=== PATIENT | female | born 1930 | race Caucasian/White ===

== ENCOUNTER 2017-07-12 16:16 | Inpatient (IN) | payer MEDICARE, BC ==
[~2017-07-12] VITALS: Ht 162.6 cm; Wt 60.8 kg
--- NOTE | 2017-07-12 16:30 | NUR ---
BBRA 60 FROM BOARD AND CARE C/O MORE ALTERED THAN BASELINE X5 DAYS ADVERTISING CLERK. BS IN FIELD 89. PER DAUGHTER PT WBC ELEVATED RECENT PCP VISIT. A/OX 1-2. BREATHING EVEN AND UNLABORED. NO SOB, NAD, VITALS STABLE. SAFETY AND COMFORT MEASURES IN PLACE. MD AT BEDSIDE FOR EVAL.
--- NOTE | 2017-07-12 16:40 | NUR ---
SUPERINTENDENT CONCRETE MIXING PLANT AT BEDSIDE FOR BLOOD DRAW.
[2017-07-12 16:43] LABS: BASOPHILS # (AUTO) 0.1 /CMM (0.0-0.2); BASOPHILS % (AUTO) 1.1 % (0.0-2.0); EOSINOPHILS % (AUTO) 2.2 % (0.0-6.0); HEMATOCRIT 42 % (33-45); HEMOGLOBIN 13.7 g/dL (11.5-14.8); LYMPHOCYTES # (AUTO) 2.9 /CMM (0.8-4.8); LYMPHOCYTES % (AUTO) 22.9 % (20.0-44.0); MEAN CORPUSCULAR HGB CONC 33 g/dl (31.0-36.0); MEAN CORPUSCULAR VOLUME 91 fL (82-100); MONOCYTES % (AUTO) 7.6 % (2.0-12.0); NEUTROPHILS # (AUTO) 8.3 /CMM (1.8-8.9); NEUTROPHILS % (AUTO) 66.2 % (43.0-81.0); PLATELET COUNT (AUTO) 402 /CMM (150-450); RED BLOOD CELL COUNT(AUTO) 4.59 MIL/uL (4.0-5.2); WHITE BLOOD COUNT (AUTO) 12.6 K/uL (4.3-11.0)
--- NOTE | 2017-07-12 16:46 | NUR ---
PATIENT TAKEN TO CT VIA STRETCHER.
[2017-07-12 16:53] LABS: CARBON DIOXIDE 25 mmol/L (21-32); CHLORIDE 103 mmol/L (98-107); CREATININE 0.6 mg/dL (0.6-1.3); GLUCOSE 86 mg/dL (74-106); POTASSIUM 4.1 mmol/L (3.5-5.1); SODIUM SERUM 139 mmol/L (136-145); UREA NITROGEN, BLOOD 21 mg/dL (7-18)
--- NOTE | 2017-07-12 16:58 | NUR ---
patient returned from ct in stable condition.
[2017-07-12 16:59] LABS: ALANINE AMINOTRANSFERASE 15 U/L (12-78); ALBUMIN 3.2 g/dL (3.4-5.0); ALKALINE PHOSPHATASE 64 U/L (46-116); ASPARTATE AMINOTRANSFERASE 14 U/L (15-37); BILIRUBIN,DIRECT 0.1 mg/dL (0.0-0.2); BILIRUBIN,TOTAL 0.3 mg/dL (0.2-1.0); TOTAL PROTEIN, SERUM 7.3 g/dL (6.4-8.2)
[2017-07-12 17:01] LABS: TROPONIN I < 0.017 ng/mL (0.00-0.056)
[2017-07-12 17:05] LABS: INR 0.92 (0.85-1.15)
--- NOTE | 2017-07-12 17:15 | NUR ---
16 FR newton catheter inserted per sterile protocal. Immediate output 125 ML of urine, color yellow, cloudy
[2017-07-12] MEDS ORDERED: IV NS 0.9% 1,000 ML BAG IV ONE (17:30)
[2017-07-12] MEDS ORDERED: VANCOMYCIN 1 GM in IV D5W 250 ML IV ONE (17:30)
[2017-07-12] MEDS ORDERED: CEFEPIME 1 GM in IV D5W 50 ML IV ONE (17:30)
[2017-07-12 17:37] LABS: APPEARANCE,URINE Clear (CLEAR); BILIRUBIN,URINE Negative (NEGATIVE); BLOOD, URINE Small Ery/uL (NEGATIVE); COLOR,URINE Yellow (YELLOW); KETONES,URINE Negative (NEGATIVE); LEUKOCYTE ESTERASE ,URINE Negative (NEGATIVE); NITRITE, URINE Negative (NEGATIVE); PH,URINE 5.5 (5.0-8.0); PROTEIN,URINE Negative (NEGATIVE); UGLUCOSE Negative (NEGATIVE); UROBILINOGEN,URINE 0.2 EU/dL (0.2)
[2017-07-12 17:39] LABS: BACTERIA,URINE Rare /HPF (None Seen); SQUAMOUS EPITHELIAL CELL,UR Few /HPF (None Seen); WBC,URINE 0-2 /HPF (0-3)
--- NOTE | 2017-07-12 17:43 | NUR ---
DAUGHTER, DPOA: URIEL PAYTON: [phone]
[2017-07-12] MEDS ORDERED: ATOR20TA PO (18:08)
[2017-07-12] MEDS ORDERED: ENAL2.5T PO (18:08)
[2017-07-12] MEDS ORDERED: METF-440 PO (18:08)
[2017-07-12] MEDS ORDERED: OMEP20TA5 PO (18:08)
--- NOTE | 2017-07-12 19:15 | NUR ---
REPORT GIVEN TO NEAL VALVERDE FOR JONATAN.
--- NOTE | 2017-07-12 19:51 | NUR ---
REPORT GIVEN TO IRVING BARCLAY FOR JONATAN.
[2017-07-12 20:08] VITALS: BP 129/82
--- NOTE | 2017-07-12 20:10 | NUR ---
RN OPENING NOTES RECEIVED REPORT FROM CARBONATION EQUIPMENT TENDER NEAL. Pt ARRIVED TO FLOOR VIA GURNEY. WAS ABLE TO TRANSFER Pt TO THE ROOM BED IN 310-2, SAFELY. 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 Pt STATES THAT THE CURRENT [place] PRESIDENT IS PRESIDENT CHAPIN. Pt IS VERBAL, AND ABLE TO FOLLOW DIRECTIONS, AND MAKE HER NEEDS KNOWN. NO S/S OF ACUTE DISTRESS OR SOB NOTED. NO C/O PAIN AT THIS TIME. ON TELE MONITOR. IV ACCESS ON LFA #18G. SAFETY MEASURES IN PLACE. BED LOW, LOCKED, HOB ELEVATED, SIDE RAILS UP, CALL LIGHT AND BEDSIDE TABLE WITHIN REACH. WILL CONTINUE TO MONITOR Pt THROUGHOUT THE NIGHT FOR SAFETY.
[2017-07-12 20:30] VITALS: BP 129/82
--- NOTE | 2017-07-12 22:55 | NUR ---
RN NOTES BG 104. NO INSULIN COVERAGE NEEDED AT THIS TIME.
[2017-07-12] MEDS ORDERED: ALBUTEROL FS 2.5 MG/0.5 ML VIAL.NEB NEB PRN (23:00)
[2017-07-12] MEDS ORDERED: IPRATROPIUM NEB FS 0.5 MG/2.5 ML AMPUL.NEB NEB PRN (23:00)
[2017-07-12] MEDS ORDERED: HYDROCODONE/APAP 5/325MG 1 EACH TABLET PO PRN (23:00)
[2017-07-12] MEDS ORDERED: ONDANSETRON HCL/PF 4 MG/2 ML VIAL IVP PRN (23:00)
[2017-07-12] MEDS ORDERED: ZOLPIDEM TARTRATE 5 MG TABLET PO PRN (23:00)
[2017-07-12] MEDS ORDERED: MAGNESIUM HYDROXIDE 30 ML UDC PO PRN (23:00)
[2017-07-12] MEDS ORDERED: Z GUARD REMEDY 2 OZ OINT TP PRN (23:00)
[2017-07-12] MEDS ORDERED: DEXTROSE 50%-WATER 50 ML DISP.SYRIN IV PRN (23:00)
[2017-07-12] MEDS ORDERED: ACETAMINOPHEN 325 MG TABLET PO PRN (23:00)
[2017-07-12] MEDS ORDERED: LEVOFLOXACIN 750 MG /D5W 150ML 150 ML IV ONE (23:40)
[2017-07-12] MEDS: LEVOFLOXACIN 750 MG /D5W 150ML 750 MG in PREMIX 1 EA IV SCH (23:55)
[2017-07-12] MEDS: IV NS 0.9% 1,000 ML IV PRN (23:55)
[2017-07-13] VITALS: BP 115/58
[2017-07-13 04:00] VITALS: BP 114/72
[2017-07-13] MEDS: BLOOD SUGAR DIAGNOSTIC 1 EACH STRIP IN SCH ×4 (06:21→22:05)
--- NOTE | 2017-07-13 06:23 | NUR ---
RN NOTES ACCUCHECK BG 88. NO INSULIN COVERAGE NEEDED AT THIS TIME.
[2017-07-13 06:41] LABS: BASOPHILS % (AUTO) 0.3 % (0.0-2.0); EOSINOPHILS % (AUTO) 0.5 % (0.0-6.0); HEMATOCRIT 38 % (33-45); HEMOGLOBIN 12.6 g/dL (11.5-14.8); LYMPHOCYTES # (AUTO) 1.2 /CMM (0.8-4.8); LYMPHOCYTES % (AUTO) 9.1 % (20.0-44.0); MEAN CORPUSCULAR HGB CONC 33 g/dl (31.0-36.0); MEAN CORPUSCULAR VOLUME 92 fL (82-100); MONOCYTES # (AUTO) 0.7 /CMM (0.1-1.30); MONOCYTES % (AUTO) 5.2 % (2.0-12.0); NEUTROPHILS # (AUTO) 10.8 /CMM (1.8-8.9); NEUTROPHILS % (AUTO) 84.9 % (43.0-81.0); PLATELET COUNT (AUTO) 346 /CMM (150-450); RDW COEFFICIENT OF VARIATION 14.8 (11.5-15.0); RED BLOOD CELL COUNT(AUTO) 4.16 MIL/uL (4.0-5.2); WHITE BLOOD COUNT (AUTO) 12.7 K/uL (4.3-11.0)
--- NOTE | 2017-07-13 06:45 | NUR ---
RN CLOSING NOTES NO SIGNIFICANT CHANGES IN Pt's CONDITION. Pt REMAINED STABLE THROUGHOUT THE SHIFT. NO S/S OF ACUTE DISTRESS OR SEVERE SOB NOTED DURING THE NIGHT. TELE READING SR 64 WITH BBB's. ALL NEEDS MET AND ATTENDED TO. SAFETY MEASURES IN PLACE. WILL ENDORSE TO DAYSHIFT RN FOR Pt's JONATAN.
[2017-07-13 07:12] LABS: CALCIUM, SERUM 8.3 mg/dL (8.5-10.1); CARBON DIOXIDE 26 mmol/L (21-32); CHLORIDE 106 mmol/L (98-107); CREATININE 0.5 mg/dL (0.6-1.3); GLUCOSE 104 mg/dL (74-106); PHOSPHORUS 3.7 mg/dL (2.5-4.9); SODIUM SERUM 142 mmol/L (136-145); UREA NITROGEN, BLOOD 15 mg/dL (7-18)
--- NOTE | 2017-07-13 07:35 | NUR ---
ECHO VASCULAR TECHNOLOGIST OPENING NOTE PATIENT IS ALERT AND ORIENTED X1-2. ABLE TO COMMUNICATE NEEDS. NO PAIN AT THIS TIME. NO SOB OR DISTRESS NOTED. ON 2L/MIN OF OXYGEN VIA NASAL CANNULA TOLERATING WELL. CALL LIGHT WITHIN REACH AND SAFETY MEASURES IMPLEMENTED. BOYLE CATHETER IN PLACE, DRAINING WELL WITH CLEAR YELLOW URINE. PENDING WOUND CONSULT. IV INTACT AND PATENT ON LEFT FOREARM WITH IV FLUIDS RUNNING AT 60 ML/HR TOLERATING WELL. BLOOD SUGAR TO BE MONITORED THROUGHOUT SHIFT. WILL CONTINUE TO MONITOR Addendum: 07/13/17 at 1236 by NICKI DOTSON RN TELE MONITOR-SR 64.
[2017-07-13 07:55] LABS: MAGNESIUM 1.2 mg/dL (1.8-2.4)
[2017-07-13 08:00] VITALS: BP 114/71
[2017-07-13] MEDS: METFORMIN 500 MG TABLET PO SCH ×2 (08:27→16:06)
[2017-07-13] MEDS: LISINOPRIL (5MG) 5 MG TABLET PO SCH (08:27)
[2017-07-13] MEDS: PANTOPRAZOLE 40 MG TABLET.DR PO SCH (08:27)
--- NOTE | 2017-07-13 08:30 | NUR ---
RN NOTE RECEIVED CALL FROM LAB IN REGARDS TO PATIENT'S MAGNESIUM LEVEL-1.2. WILL NOTIFY MD
[2017-07-13 08:36] LABS: CHOLESTEROL 132 mg/dL (<200); HDL CHOLESTEROL 41 mg/dL (40-60); LDL 71 mg/dL (0-99); TRIGLYCERIDES 157 mg/dL (30-150)
--- NOTE | 2017-07-13 09:50 | NUR ---
RN NOTE NOTIFIED MD FRANNY NP ABOUT PATIENT'S MAGNESIUM LEVEL-1.2 AWAITING ORDERS.
--- NOTE | 2017-07-13 10:00 | NUR ---
RN NOTE PATIENT NOW MEDSURG, OKAY TO TRANSFER WITH ALL PREVIOUS ORDERS
--- NOTE | 2017-07-13 10:07 | NUR ---
WOUND CARE CONSULT: PT PRESENTS WITH SKIN TEAR TO RT LOWER LEG, PRESENT ON ADMISSION.SURGICAL CONSULT RECOMMENDED. PT ALSO NOTED TO BE INCONTINENT OF STOOL. PT HAS BLANCHABLE REDNESS TO SACRAL AREA WITH SCARRING. ALL SKIN PROTECTION MEASURES IN PLACE AND DISCUSSED WITH NURSING STAFF. CURRENT UTE SCORE IS 17. WILL SEE LATRICIA Cheney MD IN AGREEMENT WITH PLAN OF CARE. Addendum: 07/13/17 at 1009 by EDILBERTO BURNHAM WNDNU Amended: Links added.
[2017-07-13] MEDS: BACITRACIN/POLYMYXIN B 15 GM TUBE TP SCH (10:30)
--- NOTE | 2017-07-13 12:02 | NUR ---
MS RN NOTE PATIENT'S BLOOD SUGAR-89 NO INSULIN NEEDED. WILL MONITOR FOR HYPO/HYPERGLYCEMIA.
[2017-07-13] MEDS: Magnesium 1GM/D5W 100ML PREMIX 100 ML IV SCH ×4 (12:13→15:54)
--- NOTE | 2017-07-13 12:16 | NUR ---
MS RN NOTE MAGNESIUM BAG 1 OF 4 RUNNING AT THIS TIME. WILL CONTINUE TO MONITOR
--- NOTE | 2017-07-13 13:45 | NUR ---
MS RN NOTE MAGNESIUM BAG #2 RUNNING AT THIS TIME. WILL CONTINUE TO MONITOR
--- NOTE | 2017-07-13 14:57 | NUR ---
MS RN NOTE MAGNESIUM BAG #3 RUNNING AT THIS TIME. WILL CONTINUE TO MONITOR
[2017-07-13 16:00] VITALS: BP 141/82
[2017-07-13] MEDS: INSULIN REGULAR, HUMAN 100 UNIT/ML 3 ML VIAL SQ PRN ×2 (17:11→22:07)
--- NOTE | 2017-07-13 18:42 | NUR ---
MS RN CLOSING NOTE PATIENT RESTING COMFORTABLY AT THIS TIME. NO PAIN NOTED. NO SOB OR DISTRESS NOTED. CALL LIGHT WITHIN REACH AT ALL TIMES. SAFETY MEASURES IMPLEMENTED. ABLE TO COMMUNICATE NEEDS. ALL DUE MEDICATIONS GIVEN ORDERED. ALL NURSING CARE NEEDS ATTENDED TO NEEDED. MAGNESIUM REPLACED WITH 4 BAGS. LABS IN AM AND PHYSICAL THERAPY. IV INTACT AND PATENT WITH IV FLUIDS RUNNING AT THIS TIME. WILL ENDORSE TO FOUNDER CHAIRMAN AND CHIEF CREATIVE OFFICER NURSE FOR JONATAN
--- NOTE | 2017-07-13 19:22 | NUR ---
MS RN OPENING NOTE RECEIVED PATIENT IN BED, ALERT ORIENTED X2, FORGETFUL. PATIENT ON ROOM AIR, TOLERATING WELL. ABLE TO COMMUNICATE NEEDS. DENIES PAIN AND SOB AT THIS TIME. RESPIRATIONS EVEN AND UNLABORED, IN NO APPARENT DISTRESS OR DISCOMFORT. L FOREARM 18G IV WITH NS RUNNING @60 ML/HR. NO SIGN OF INFILTRATION NOTED. PATIENT WITH BOYLE CATH WITH CLEAR YELLOW URINE OUTPUT DRAINING WELL. ALL NEEDS ATTENDED, SAFETY MEASURES IN PLACE, BED IN LOW LOCKED POSITION, SIDE RAILS UP X2, CALL LIGHT WITHIN EASY REACH. WILL CONTINUE TO MONITOR.
[2017-07-13 20:00] VITALS: BP 129/66
[2017-07-13] MEDS: LEVOFLOXACIN 750 MG /D5W 150ML 750 MG in PREMIX 1 EA IV SCH (22:03)
[2017-07-13] MEDS: ATORVASTATIN 10 MG TABLET PO SCH (22:04)
[2017-07-13] MEDS: IV NS 0.9% 1,000 ML IV PRN (22:16)
--- NOTE | 2017-07-14 06:29 | NUR ---
MS RN CLOSING NOTE PATIENT IN BED, ALERT ORIENTED X1-2, FORGETS WORDS AND EVENTS BUT ORIENTED TO OWN LIMITATIONS. PATIENT ON ROOM AIR, TOLERATING WELL. ABLE TO COMMUNICATE NEEDS. DENIES PAIN AND SOB AT THIS TIME. RESPIRATIONS EVEN AND UNLABORED, IN NO APPARENT DISTRESS OR DISCOMFORT. L FOREARM 18G IV WITH NS RUNNING @60 ML/HR. NO SIGN OF INFILTRATION NOTED. PATIENT WITH BOYLE CATH WITH 1200 ML CLEAR YELLOW URINE OUTPUT, DRAINING WELL. PATIENT HAD 2 BM THROUGHOUT THE NIGHT. SLEPT VERY LITTLE INTERMITTENTLY. ALL NEEDS ATTENDED, KEPT CLEAN AND COMFORTABLE. SAFETY MEASURES IN PLACE, BED IN LOW LOCKED POSITION, SIDE RAILS UP X2, CALL LIGHT WITHIN EASY REACH. WILL ENDORSE TO AM NURSE FOR JONATAN.
[2017-07-14] MEDS: BLOOD SUGAR DIAGNOSTIC 1 EACH STRIP IN SCH ×4 (06:54→22:37)
--- NOTE | 2017-07-14 06:55 | NUR ---
PATIENT'S BLOOD SUGAR 91. NO INSULINE COVERAGE PER SLIDING SCALE.
--- NOTE | 2017-07-14 07:39 | NUR ---
MS RN NOTES PATIENT RECEIVED RESTING INSIDE ROOM. SLEEPING, AROUSABLE THROUGH VERBAL AND TACTILE STIMULI. BREATHING EVEN AND UNLABORED. NO SOB OR ACUTE DISTRESS NOTED AT THIS TIME. PATIENT AFEBRILE, SKIN DRY AND WARM TO TOUCH. NO CHANGES IN LOC NOTED AT THIS TIME. PATIENT DENIES ANY PAIN OR DISCOMFORT. IV SITE AT LFA INTACT AND PATENT, NO BLEEDING OR SWELLING NOTED. WILL CONTINUE TO MONITOR. BED LOCKED AND IN LOW POSITION. BILATERAL UPPER SIDE RAILS UP AND LOCKED. CALL LIGHT WITHIN EASY REACH.
[2017-07-14 08:00] VITALS: BP 125/64
[2017-07-14 08:24] LABS: BASOPHILS % (AUTO) 0.3 % (0.0-2.0); EOSINOPHILS % (AUTO) 1.6 % (0.0-6.0); HEMATOCRIT 36 % (33-45); HEMOGLOBIN 12.2 g/dL (11.5-14.8); LYMPHOCYTES # (AUTO) 1.2 /CMM (0.8-4.8); LYMPHOCYTES % (AUTO) 10.9 % (20.0-44.0); MEAN CORPUSCULAR HGB CONC 34 g/dl (31.0-36.0); MEAN CORPUSCULAR VOLUME 90 fL (82-100); MONOCYTES % (AUTO) 8.9 % (2.0-12.0); NEUTROPHILS # (AUTO) 8.5 /CMM (1.8-8.9); NEUTROPHILS % (AUTO) 78.3 % (43.0-81.0); PLATELET COUNT (AUTO) 328 /CMM (150-450); RDW COEFFICIENT OF VARIATION 13.8 (11.5-15.0); WHITE BLOOD COUNT (AUTO) 10.9 K/uL (4.3-11.0)
[2017-07-14 08:30] LABS: CALCIUM, SERUM 8.6 mg/dL (8.5-10.1); CARBON DIOXIDE 26 mmol/L (21-32); CHLORIDE 107 mmol/L (98-107); CREATININE 0.6 mg/dL (0.6-1.3); GLUCOSE 90 mg/dL (74-106); MAGNESIUM 1.9 mg/dL (1.8-2.4); PHOSPHORUS 3.2 mg/dL (2.5-4.9); POTASSIUM 4.5 mmol/L (3.5-5.1); SODIUM SERUM 141 mmol/L (136-145); UREA NITROGEN, BLOOD 14 mg/dL (7-18)
[2017-07-14] MEDS: BACITRACIN/POLYMYXIN B 15 GM TUBE TP SCH (08:57)
[2017-07-14] MEDS: LISINOPRIL (5MG) 5 MG TABLET PO SCH (08:58)
[2017-07-14] MEDS: PANTOPRAZOLE 40 MG TABLET.DR PO SCH (08:58)
[2017-07-14] MEDS: METFORMIN 500 MG TABLET PO SCH ×2 (08:58→17:33)
[2017-07-14] MEDS: INSULIN REGULAR, HUMAN 100 UNIT/ML 3 ML VIAL SQ PRN ×2 (12:46→22:51)
[2017-07-14 16:00] VITALS: BP 131/60
[2017-07-14] MEDS: IV NS 0.9% 1,000 ML IV PRN (17:33)
--- NOTE | 2017-07-14 18:38 | NUR ---
MS RN NOTES PATIENT RESTING INSIDE ROOM. AWAKE, ALERT AND ORIENTED 1-2. ABLE TO MAKE NEEDS KNOWN AND FOLLOW SIMPLE INSTRUCTIONS. BREATHING EVEN AND UNLABORED. NO SOB OR ACUTE DISTRESS NOTED. NO CHANGES IN LOC NOTED. PATIENT REMAINS AFEBRILE, SKIN DRY AND WARM TO TOUCH. IV SITE ON LFA INTACT AND PATENT, NO BLEEDING OR SWELLING NOTED AT THIS TIME. CONTINUE WITH BOYLE CATHETER USE WITH CLEAR YELLOW URINE OUTPUT NOTED, NO HEMATURIA NOTED, NO FOUL URINE ODOR NOTED. URINE OUTPUT AT THIS SHIFT 1100cc. WILL CONTINUE TO MONITOR. ALL DUE MEDICATIONS GIVEN AND TOLERATED WELL. PROVIDED WITH CALM, SAFE, HAZARD-FREE ENVIRONMENT. PATIENT KEPT, CLEAN, DRY AND WARM TO TOUCH. WILL ENDORSE TO INCOMING SHIFT FOR JONATAN. BED LOCKED AND IN LOW POSITION. BILATERAL UPPER SIDE RAILS UP AND LOCKED. CALL LIGHT WITHIN EASY REACH
--- NOTE | 2017-07-14 19:55 | NUR ---
rn initial notes: received report from jb mackenzie in bed, awake, a/o x2, on ra respiration even and unlabored. denies any pain or discomfort. no facial grimace noted. iv access patent and flushing well, infusing with ns at 60ml/hr. pt received with newton catheter in placed, draining into yellow colored urine. ble offloaded. discussed with pt regarding plan of care. safety precautions for fall initiated, call light in reach, will continue to monitor.
[2017-07-14 20:00] VITALS: BP 100/57
[2017-07-14] MEDS: ATORVASTATIN 10 MG TABLET PO SCH (22:37)
[2017-07-14] MEDS: LEVOFLOXACIN 750 MG /D5W 150ML 750 MG in PREMIX 1 EA IV SCH (22:48)
--- NOTE | 2017-07-14 22:50 | NUR ---
BLOOD SUGAR 119: CHECKED PT'S BLOOD SUGAR AND RESULT IS 119, NO INSULIN COVERAGE GIVEN PER SLIDING SCALE. SNACK PROVIDED TO THE PT, SUCH CRANBERRY JUICE AND PUDDING, ATE SNACK 100%. ASPIRATION PROTOCOL INITIATED.
--- NOTE | 2017-07-14 23:19 | NUR ---
rn notes: pt had one large bm, soft, bed bath provided to the pt at this time.
[2017-07-15] MEDS: BLOOD SUGAR DIAGNOSTIC 1 EACH STRIP IN SCH ×2 (06:10→12:09)
[2017-07-15] MEDS: IV NS 0.9% 1,000 ML IV PRN (06:11)
[2017-07-15] MEDS: INSULIN REGULAR, HUMAN 100 UNIT/ML 3 ML VIAL SQ PRN ×2 (06:11→12:11)
--- NOTE | 2017-07-15 06:12 | NUR ---
BLOOD SUGAR 102: BLOOD SUGAR WAS CHECKED AND RESULT IS 102, NO INSULIN COVERAGE GIVEN PER SLIDING SCALE, WILL MONITOR PT FOR ANY S/S OF HYPOGLYCEMIA
--- NOTE | 2017-07-15 06:41 | NUR ---
rn closing notes: pt remains on ra, no sob noted, respiration even and unlabored. remains confused, a/o x1-2. iv access remains patent and flushing well, infusing with ns at 60ml/hr. ble kept offloaded. newton catheter remains in placed, bag emptied by open shank coverer. vs remains stable, needs attended. for dc planning, awaiting acceptance from [facility]. exit care filled up. safety precautions for fall remains engaged, call light in reach, will endorse to day rn for ajit.
[2017-07-15 08:00] VITALS: BP 117/48
--- NOTE | 2017-07-15 08:00 | NUR ---
m/s gamma facilities operator: initial assessment received pt in bed awake, alert to name with confusion and disorientation to time, place, and situation. reality orientation provided prn. newton cath in place, draining well via gravity. turned and repositioned. kept comfortable. will continue to monitor.
[2017-07-15] MEDS: PANTOPRAZOLE 40 MG TABLET.DR PO SCH (09:27)
[2017-07-15] MEDS: METFORMIN 500 MG TABLET PO SCH (09:27)
[2017-07-15] MEDS: BACITRACIN/POLYMYXIN B 15 GM TUBE TP SCH (09:28)
[2017-07-15] MEDS: LISINOPRIL (5MG) 5 MG TABLET PO SCH (09:30)
--- NOTE | 2017-07-15 10:00 | NUR ---
m/s hyperion administrator: notes am care rendered. turned and repositioned. will continue to monitor.
[2017-07-15] MEDS ORDERED: LEVO750T21 PO (11:00)
--- NOTE | 2017-07-15 11:05 | NUR ---
m/s programs assistant: md visit seen and examined by rony (acnp) with order to d'c to snf. order acknowledge. pt made aware. patrice (daughter) notified and made aware re: d'c to snf, spoke to her over the phone.
--- NOTE | 2017-07-15 13:45 | NUR ---
m/s production drilling machine operator: notes report given to ventura from [facility] for continuity of care. awaiting for ambulance to pick her up.
--- NOTE | 2017-07-15 14:40 | NUR ---
m/s international coordinator: notes f/u made to neo (case management) re: fruit picker machine operator time, stated, "it's for 4 o' clock fruit picker machine operator." pt made aware.
--- NOTE | 2017-07-15 15:40 | NUR ---
m/s venetian blind maker: notes patrice (daughter) here with her , stated, "i will ride with the ambulance and my will follow." pt more alert now. no c/o pain. needs attended. awaiting for ambulance to pick her up. will continue to monitor.
[2017-07-15 16:00] VITALS: BP 134/66
--- NOTE | 2017-07-15 16:20 | NUR ---
m/s skiing teacher: notes ambulance here and report given to one of the crew. h/l removed with tip intact with no bleeding, no redness, and no swelling noted.
--- NOTE | 2017-07-15 16:35 | NUR ---
m/s marine underwriter: discharged discharged to snf via ambulance in stable condition with all belongings and d'c papers accompanied by daughter and 2 crew.
== END 2017-07-15 16:30 | DRG 871 ==
LOC: ER 16:19 → TELE 19:40 → MED 07-13 09:03
PROVIDERS: ADMIT Nurse Practitioner Acute Care; ATTEND Nurse Practitioner Acute Care
DX: A41.9 Sepsis, unspecified organism (principal); J18.9 Pneumonia, unspecified organism; L89.159 Pressure ulcer of sacral region, unspecified stage; G92 Toxic encephalopathy; J80 Acute respiratory distress syndrome; E87.2 Acidosis; E44.1 Mild protein-calorie malnutrition; E11.9 Type 2 diabetes mellitus without complications; I10 Essential (primary) hypertension; F03.90 Unspecified dementia, unspecified severity, without behavioral disturbance, psychotic disturbance, mood disturbance, and anxiety; Z79.84 Long term (current) use of oral hypoglycemic drugs; Z79.899 Other long term (current) drug therapy; L89.899 Pressure ulcer of other site, unspecified stage; L85.3 Xerosis cutis; L60.3 Nail dystrophy; K21.9 Gastro-esophageal reflux disease without esophagitis; S81.811A Laceration without foreign body, right lower leg, initial encounter; X58.XXXA Exposure to other specified factors, initial encounter; Y92.009 Unspecified place in unspecified non-institutional (private) residence as the place of occurrence of the external cause
CPT/HCPCS: 36415; 70450-TC; 71045-TC; 80048-TC; 80061-TC; 80076-TC; 81000-TC; 82962-TC; 83605-TC; 83735-TC; 83880; 84100-TC; 84484-TC; 85025-TC; 85730-TC; 87040-TC; 87081-TC; 87086-TC; A4216; A4606; A6402; J0692; J1815; J1956; J3370; J3475; J7030; J7060; Z7610

== ENCOUNTER 2021-08-25 08:51 | Inpatient (IN) | payer MEDICARE, BC ==
[~2021-08-25] VITALS: Ht 165.1 cm; Wt 58.5 kg
[2021-08-25] VITALS (21 sets, daily range): BP systolic 79–119; BP diastolic 40–78
[~2021-08-25 08:51] MED LIST: ATOR20TA PO; ENAL2.5T17 PO; LEVO750T21 PO; METF-440 PO; OMEP20TA5 PO
--- NOTE | 2021-08-25 08:58 | NUR ---
TANA MANUEL From [facility] "ALOC/Low O2sats. HFNR@15L - HR128. PLACED ON BED, NOT RESPONDING TO VERBAL AND PAINFUL STIMULI, SATURATING AT 98% WITH HFNR 154L, RR-24
[2021-08-25] MEDS ORDERED: CEFEPIME 1 GM in IV D5W 50 ML IV ONE (09:00)
[2021-08-25] MEDS ORDERED: VANCOMYCIN 1 GM in IV D5W 250 ML IV ONE (09:00)
--- NOTE | 2021-08-25 09:01 | NUR ---
IV ESTABLISHED R FA 18G. LABS DRAWN AND SENT.
--- NOTE | 2021-08-25 09:11 | NUR ---
COVID SWAB OBTAINED AND SENT TO LAB
[2021-08-25 09:39] LABS: BASOPHILS # (AUTO) 0.7 K/uL (0.0-0.2); BASOPHILS % (AUTO) 1.5 % (0.0-2.0); HEMATOCRIT 40 % (33-45); HEMOGLOBIN 12.9 g/dL (11.5-14.8); LYMPHOCYTES # (AUTO) 0.6 K/uL (0.8-4.8); LYMPHOCYTES % (AUTO) 1.2 % (20.0-44.0); MEAN CORPUSCULAR HGB CONC 32 g/dl (31.0-36.0); MEAN CORPUSCULAR VOLUME 87 fL (82-100); MONOCYTES # (AUTO) 3.7 K/uL (0.1-1.30); MONOCYTES % (AUTO) 7.3 % (2.0-12.0); NEUTROPHILS # (AUTO) 45.3 K/uL (1.8-8.9); PLATELET COUNT (AUTO) 536 K/uL (150-450); RED BLOOD CELL COUNT(AUTO) 4.62 MIL/uL (4.0-5.2)
[2021-08-25 09:46] LABS: WHITE BLOOD COUNT (AUTO) 50.3 K/uL (4.3-11.0)
[2021-08-25] MEDS ORDERED: BISA10SU11 RC (09:48)
[2021-08-25] MEDS ORDERED: GLIM2TAB31 PO (09:48)
[2021-08-25] MEDS ORDERED: IVER3TAB2 PO (09:48)
[2021-08-25] MEDS ORDERED: CRAN425C6 PO (09:48)
[2021-08-25] MEDS ORDERED: MAGN400O6 PO (09:48)
[2021-08-25] MEDS ORDERED: ACET-868 PO (09:48)
[2021-08-25] MEDS ORDERED: ACET-2605 PO (09:48)
[2021-08-25] MEDS ORDERED: ASPI-1169 PO (09:48)
[2021-08-25] MEDS ORDERED: SITA100T PO (09:48)
[2021-08-25] MEDS ORDERED: OMEG-88 PO (09:48)
[2021-08-25] MEDS ORDERED: CHOL100043 PO (09:48)
--- NOTE | 2021-08-25 09:52 | NUR ---
THE PATIENT IS TAKEN TO CT VIA RNEY
[2021-08-25] MEDS ORDERED: ONDANSETRON HCL/PF - ER 4 MG/2 ML VIAL IV ONE (10:00)
--- NOTE | 2021-08-25 10:05 | NUR ---
TAMAR DYE. FR16 [facility]. URINE SAMPLE SENT TO LAB.
[2021-08-25 10:06] LABS: CARBON DIOXIDE 24 mmol/L (21-32); CHLORIDE 96 mmol/L (98-107); POTASSIUM 4.9 mmol/L (3.5-5.1); SODIUM SERUM 134 mmol/L (136-145)
[2021-08-25] MEDS ORDERED: ONDANSETRON HCL/PF 4 MG/2 ML VIAL ONE (10:18)
[2021-08-25 10:29] LABS: BILIRUBIN,URINE NEGATIVE (NEGATIVE); COLOR,URINE YELLOW (YELLOW); LEUKOCYTE ESTERASE ,URINE NEGATIVE (NEGATIVE); NITRITE, URINE NEGATIVE (NEGATIVE); PH,URINE 5.5 (5.0-8.0); PROTEIN,URINE NEGATIVE (NEGATIVE); UGLUCOSE NEGATIVE (NEGATIVE); UROBILINOGEN,URINE 0.2 EU/dL (0.2)
[2021-08-25] MEDS ORDERED: IV NS 0.9% 2,000 ML IV ONE (10:30)
[2021-08-25] MEDS ORDERED: SODIUM BICARBONATE SYR 50 MEQ/50 ML DISP.SYRIN ONE (10:57)
[2021-08-25] MEDS ORDERED: INSULIN REGULAR, HUMAN 100 UNIT/ML 10 ML VIAL ONE (10:57)
[2021-08-25] MEDS ORDERED: CALCIUM CHLORIDE 1,000 MG/10 ML DISP.SYRIN ONE (11:00)
[2021-08-25] MEDS ORDERED: INSULIN REGULAR, HUMAN 100 UNITS in IV NS 0.9% 100 ML IV PRN ×2 (11:00)
[2021-08-25] MEDS ORDERED: ALBUTEROL FS 2.5 MG/3 ML VIAL.NEB NEB ONE (11:00)
[2021-08-25] MEDS ORDERED: SODIUM BICARBONATE SYR 50 MEQ/50 ML DISP.SYRIN IV ONE (11:00)
[2021-08-25] MEDS ORDERED: IV NS 0.9% 1,000 ML IV PRN ×2 (11:00→11:30)
[2021-08-25] MEDS ORDERED: FUROSEMIDE 40 MG/4 ML VIAL IV ONE (11:00)
[2021-08-25] MEDS ORDERED: CALCIUM CHLORIDE 1,000 MG/10 ML DISP.SYRIN IV ONE (11:00)
[2021-08-25] MEDS ORDERED: INSULIN REGULAR, HUMAN 100 UNIT/ML 10 ML VIAL SQ ONE (11:00)
[2021-08-25] MEDS ORDERED: SODIUM BICARBONATE SYR 100 MEQ in IV D5W 1,000 ML IV ONE (11:00)
[2021-08-25] MEDS ORDERED: ALBUTEROL FS 2.5 MG/3 ML VIAL.NEB ONE (11:09)
[2021-08-25 11:11] LABS: THYROID STIMULATING HORMONE 2.376 uIU/mL (0.358-3.74)
[2021-08-25 11:16] LABS: ALANINE AMINOTRANSFERASE 18 U/L (12-78); ALBUMIN 2.6 g/dL (3.4-5.0); ALCOHOL, BLOOD < 3 mg/dL (0-0); ALKALINE PHOSPHATASE 91 U/L (46-116); ASPARTATE AMINOTRANSFERASE 15 U/L (15-37); BILIRUBIN,DIRECT 0.2 mg/dL (0.0-0.2); BILIRUBIN,TOTAL 0.8 mg/dL (0.2-1.0); CREATININE 1.6 mg/dL (0.6-1.3); TOTAL PROTEIN, SERUM 7.1 g/dL (6.4-8.2); UREA NITROGEN, BLOOD 41 mg/dL (7-18)
[2021-08-25] MEDS ORDERED: FUROSEMIDE 40 MG/4 ML VIAL ONE (11:19)
[2021-08-25] MEDS ORDERED: ACETAMINOPHEN ES 500 MG TABLET PO PRN (11:30)
[2021-08-25] MEDS ORDERED: BISACODYL SUPP (10 MG) 10 MG/SUPP.RECT SUPP.RECT RC PRN (11:30)
[2021-08-25] MEDS ORDERED: ACETAMINOPHEN 650 MG/SUPP.RECT RC PRN (11:30)
[2021-08-25] MEDS ORDERED: DEXTROSE 50%-WATER 50 ML DISP.SYRIN IV PRN ×2 (11:30→23:00)
[2021-08-25] MEDS ORDERED: INSULIN REGULAR, HUMAN 100 UNIT in IV NS 0.9% 99 ML IV PRN ×4 (11:30→16:00)
[2021-08-25] MEDS ORDERED: ACETAMINOPHEN 325 MG TABLET PO PRN (11:30)
[2021-08-25 11:49] LABS: CARBON DIOXIDE 26 mmol/L (21-32); CHLORIDE 98 mmol/L (98-107); CREATININE 1.6 mg/dL (0.6-1.3); MAGNESIUM 1.6 mg/dL (1.8-2.4); PHOSPHORUS 5.1 mg/dL (2.5-4.9); POTASSIUM 5.2 mmol/L (3.5-5.1); SODIUM SERUM 130 mmol/L (136-145); UREA NITROGEN, BLOOD 43 mg/dL (7-18)
[2021-08-25] MEDS: BLOOD SUGAR DIAGNOSTIC 1 EACH STRIP IN SCH ×12 (12:12→23:42)
[2021-08-25 12:14] LABS: GLUCOSE 474 mg/dL (74-106)
[2021-08-25 12:16] LABS: CALCIUM, SERUM 13.3 mg/dL (8.5-10.1); GLUCOSE 558 mg/dL (74-106)
[2021-08-25 12:31] LABS: BACTERIA,URINE None seen /HPF (None Seen); RBC,URINE NONE SEEN /HPF (0-2); SQUAMOUS EPITHELIAL CELL,UR None Seen /HPF (None Seen); WBC,URINE NONE SEEN /HPF (0-3)
--- NOTE | 2021-08-25 12:38 | NUR ---
DRESSER TENDER [facility] WILL BE DONE AT 1800. DONT GIVE MORPHINE ORDERED.
--- NOTE | 2021-08-25 12:40 | NUR ---
CALLED NURSING SUP REGARDING PT BED
[2021-08-25 12:48] LABS: BAND % (MANUAL) 5 % (0.0-5.0); LYMPHOCYTES % (MANUAL) 1 % (16-48); METAMYELOCYTES % 1 % (0-0); MONOCYTES % (MANUAL) 7 % (0-11.0)
[2021-08-25 12:49] LABS: NEUTROPHILS % (MANUAL) 86 (42-76)
[2021-08-25] MEDS: PIPERACILLIN /TAZOBACTAM 3.375 G in IV D5W 50 ML IV SCH ×3 (13:40→23:40)
[2021-08-25 14:11] LABS: CALCIUM, SERUM 8.9 mg/dL (8.5-10.1); CARBON DIOXIDE 20 mmol/L (21-32); CHLORIDE 102 mmol/L (98-107); CREATININE 1.4 mg/dL (0.6-1.3); POTASSIUM 4.8 mmol/L (3.5-5.1); SODIUM SERUM 139 mmol/L (136-145); UREA NITROGEN, BLOOD 38 mg/dL (7-18)
[2021-08-25 14:13] LABS: GLUCOSE 443 mg/dL (74-106)
[2021-08-25 14:25] LABS: SERUM AMMONIA 25 umol/L (11-32)
--- NOTE | 2021-08-25 14:27 | NUR ---
JOSÉ LUIS GUILLORY ORDERS TO DISCONTINUE 0.9 NS 250MLS. Q4HRS.
[2021-08-25 15:20] LABS: CALCIUM, SERUM 8.7 mg/dL (8.5-10.1); CREATININE 1.3 mg/dL (0.6-1.3); MAGNESIUM 1.5 mg/dL (1.8-2.4); PHOSPHORUS 3.6 mg/dL (2.5-4.9); POTASSIUM 4.5 mmol/L (3.5-5.1)
--- NOTE | 2021-08-25 15:34 | NUR ---
report given to nurse Fields
--- NOTE | 2021-08-25 15:34 | NUR ---
room 255
[2021-08-25 15:44] LABS: LIPASE 13 U/L (73-393)
--- NOTE | 2021-08-25 16:40 | NUR ---
PATIENT TRANSFER TO [id number] INSTABLE CONDITION AND PER ACLS POLYCY
--- NOTE | 2021-08-25 16:54 | NUR ---
CLINICAL MANAGER NOTE PATIENT RECEIVED IN ROOM 255. INSULIN DRIP RUNNING AT 2.02 ML/HR. BOYLE CATH IN PLACE. RIGHT FA 18G, LEFT FA ANF LEFT WRIST 20G IN PLACE RUNNING NS AT 100CC/HR AND SODIUM BICARB AT 100CC/HR.
[2021-08-25] MEDS: Magnesium 1GM/D5W 100ML PREMIX 100 ML IV SCH ×2 (17:33→18:46)
--- NOTE | 2021-08-25 18:39 | NUR ---
RN CLOSING NOTE PATIENT REMAINS IN BED, OBTUNDED, OPEN EYES ONLY TO PAINFUL STIMULI. PT ON 8L O2 VIA SIMPLE MASK SAT 100% ON BEDSIDE MONITOR. BOYLE CATH IN PLACE PATENT AND DRAINING. RIGHT FA 18G, LEFT FA 20G AND LEFT WRIST 20G IN PLACE RUNNING SODIUM BICARB D5W AT 100CC/HR, NS AT 100CC/HR AND INSULIN DRIP AT 7ML/HR PER PROTOCOL. BED LOCKED AND IN LOWEST POSITION, CALL LIGHT WITHIN REACH, 3 SIDE RAILS UP. WILL ENDORSE TO INSURANCE JOB TITLES RN FOR JNOATAN.
--- NOTE | 2021-08-25 20:20 | NUR ---
ICU/WOOD BLOCK ARTIST NERA ID INDEPENDENT CONSULTANT FOR DRYER CAME TO SEE PT, GAVE ORDER FOR ELIMITE CREAM AND REMOVE IN 12 HOURS. ORDERS RECEIVED AND CARRIED OUT.
[2021-08-25] MEDS ORDERED: PERMETHRIN 5% CRM 60 GM TUBE TP PRN (20:30)
[2021-08-25] MEDS: PHENYLEPHRINE 100 MG in IV NS 0.9% 240 ML IV PRN (20:35)
--- NOTE | 2021-08-25 20:45 | NUR ---
ICU/LATHER APPRENTICE BLOOD PRESSURE IS LOW THROUGH A FEW CYCLES, CHARGE NURSE MADE AWARE. CALLED HEAD KNITTING MACHINE FIXER DORA GAVE ORDER TO START NA, KEEP MAP ABOVE 65. WILL CONTINUE TO MONITOR THIS PT.
[2021-08-25] MEDS ORDERED: VANCOMYCIN 0.75 GM in IV D5W 250 ML IV SCH (21:00)
[2021-08-25 21:11] LABS: CALCIUM, SERUM 8.2 mg/dL (8.5-10.1); CREATININE 1.3 mg/dL (0.6-1.3); POTASSIUM 3.7 mmol/L (3.5-5.1)
[2021-08-25] MEDS: ATORVASTATIN 10 MG TABLET PO SCH (21:29)
--- NOTE | 2021-08-25 21:29 | NUR ---
ICU/SIGNS CLEANER UNABLE TO GIVE PT'S 2200 DOSE OF LIPITOR DUE TO PT IS LETHARGIC, AND POSSIBILITY OF PT ASPIRATION IS POSSIBLE. WILL CONTINUE TO MONITOR THIS PT.
--- NOTE | 2021-08-25 21:43 | NUR ---
ICU/REPRODUCTIVE ENDOCRINOLOGIST ANION GAP CLOSED FROM THE CHEMISTRY DRAWN EARLIER. GOING TO WAIT UNTIL 2200 BLOOD SUGAR, BEFORE CALLING THE PIANO BENCH ASSEMBLER MD. Dunn
--- NOTE | 2021-08-25 22:57 | NUR ---
ICU/CELLOPHANE WORKER SANDING SUPERVISOR MD NOTIFED ABOUT THE ANION GAP 9, SAID TO DISCONTINUE INSULIN DRIP ALONG WITH EVERY ON HOUR ACCU CHECKS. PLACE PT ON AGGRESSIVE SLIDING SCALE AND DO ACCU CHECKS EVERY 4 HOURS. ORDERS RECIEVED AND CARRIED OUT.
[2021-08-25] MEDS ORDERED: INSULIN REGULAR, HUMAN 100 UNIT/ML 3 ML VIAL ONE (23:11)
--- NOTE | 2021-08-25 23:24 | NUR ---
RT NOTE NASOTRACHEAL SUCTION DONE. MODERATE THICK WHITE YELLOW SECRETIONS NOTED. PT REMAINS ON SIMPLE MASK @ 8LPM. NO RESPIRATORY DISTRESS NOTED. NURSE RODERICK @ BEDSIDE.
--- NOTE | 2021-08-25 23:24 | NUR ---
ICU/CERTIFIED LACTATION COUNSELOR PT WAS DEEP SUCTIONED BY RT MARIANO, THICK YELLOW SECRETIONS FOUND. ODER WAS OBTAINED TO DEEP SUCTION THIS PT.
[2021-08-25] MEDS: INSULIN REGULAR, HUMAN 100 UNIT/ML 3 ML VIAL SQ PRN (23:46)
[2021-08-26] VITALS (91 sets, daily range): BP systolic 79–138; BP diastolic 23–85
--- NOTE | 2021-08-26 00:32 | NUR ---
ICU/FINISHING OPERATOR CHANGED OVER IVF FROM NS TO D5 1/2 NS PLUS 20KCL@100ML/HR SINCE PT IS ON AGGRESSIVE SLIDING SCALE AND IS NOT AWAKE TO EAT.
[2021-08-26] MEDS ORDERED: IV PREMIX D5 1/2NS + KCL 1,000 ML IV ONE (00:43)
[2021-08-26] MEDS ORDERED: INSULIN GLARGINE, 100 UNIT/ML CARTRIDGE SQ ONE ×2 (00:54→03:00)
[2021-08-26] MEDS: IV PREMIX D5 1/2NS + KCL 1,000 ML IV PRN ×3 (00:58→21:38)
[2021-08-26] MEDS: BLOOD SUGAR DIAGNOSTIC 1 EACH STRIP IN SCH ×6 (01:07→21:34)
--- NOTE | 2021-08-26 01:46 | NUR ---
ICU/HERPETOLOGY TEACHER LANTUS WAS ORDERED X1, 20 UNITS PLUS CHANGE OF IVF NS TO NOW D5 1/2 NS WITH 20KCL WITH ORDER WAS RECEIVED AND CARRIED OUT. WITH THE BLOOD SUGAR AT 170.
[2021-08-26 04:08] LABS: BASOPHILS # (AUTO) 0.1 K/uL (0.0-0.2); BASOPHILS % (AUTO) 0.2 % (0.0-2.0); HEMATOCRIT 33 % (33-45); LYMPHOCYTES # (AUTO) 1.1 K/uL (0.8-4.8); LYMPHOCYTES % (AUTO) 2.4 % (20.0-44.0); MEAN CORPUSCULAR HGB CONC 33 g/dl (31.0-36.0); MEAN CORPUSCULAR VOLUME 86 fL (82-100); MONOCYTES # (AUTO) 3.5 K/uL (0.1-1.30); MONOCYTES % (AUTO) 7.9 % (2.0-12.0); NEUTROPHILS % (AUTO) 89.5 % (43.0-81.0); PLATELET COUNT (AUTO) 422 K/uL (150-450); RED BLOOD CELL COUNT(AUTO) 3.89 MIL/uL (4.0-5.2)
[2021-08-26 04:13] LABS: WHITE BLOOD COUNT (AUTO) 44.7 K/uL (4.3-11.0)
[2021-08-26 04:37] LABS: BAND % (MANUAL) 2 % (0.0-5.0)
[2021-08-26 04:38] LABS: LYMPHOCYTES % (MANUAL) 8 % (16-48)
[2021-08-26 04:39] LABS: MONOCYTES % (MANUAL) 3 % (0-11.0); NEUTROPHILS % (MANUAL) 87 (42-76)
[2021-08-26 04:59] LABS: CALCIUM, SERUM 8.9 mg/dL (8.5-10.1); CARBON DIOXIDE 28 mmol/L (21-32); CHLORIDE 97 mmol/L (98-107); CREATININE 1.2 mg/dL (0.6-1.3); GLUCOSE 221 mg/dL (74-106); MAGNESIUM 1.9 mg/dL (1.8-2.4); PHOSPHORUS 3.1 mg/dL (2.5-4.9); POTASSIUM 4.3 mmol/L (3.5-5.1); SODIUM SERUM 135 mmol/L (136-145); UREA NITROGEN, BLOOD 36 mg/dL (7-18)
[2021-08-26] MEDS: INSULIN REGULAR, HUMAN 100 UNIT/ML 3 ML VIAL SQ PRN ×3 (05:07→21:37)
[2021-08-26] MEDS: PIPERACILLIN /TAZOBACTAM 3.375 G in IV D5W 50 ML IV SCH ×4 (05:53→23:31)
--- NOTE | 2021-08-26 08:00 | NUR ---
RN NOTES RECEIVED PATIENT DNR/DNI ON SIMPLE FACE MASK 8L ON BEDSIDE MONITOR SHOWS 100%, ASPIRATION PRECAUTION, EYES IS CLOSE MOST OF THE TIME, NO ACUTE RESPIRATORY DISTRESS, ACCORDING WATERWORKS OPERATOR Dr ARIAS CHANGE FOR NC, BS-175 MG/DL COVERAGE GIVEN, HOLD PO MEDICATION BECAUSE OF NPO, ASPIRATION PRECAUTION. INFUSING NEOSYNEPHRINE 0.6 MCG/KG/MIN, AND D51/2 NS +KCL @20MEQ @100ML/HR ON LEFT ML INTACT. PATIENT TOTAL CARE, ASSIST TURN AND REPOSTION Q 2 HR. WILL FOLLOW UP.
[2021-08-26] MEDS: ASPIRIN 81 MG TAB.CHEW PO SCH ×2 (08:16→08:43)
[2021-08-26] MEDS: CHOLECALCIFEROL 1,000 UNIT TABLET (VIT D3) PO SCH ×2 (08:16→08:44)
[2021-08-26] MEDS: PANTOPRAZOLE 40 MG VIAL IV SCH (08:17)
--- NOTE | 2021-08-26 09:31 | NUR ---
WOUND CARE CONSULT: PT SLEEPING AT THIS TIME. REVIEWED CHART, NURSING DOCUMENTATION AND PHOTOS WHICH INDICATE SACRAL AND RT HEEL DEEP TISSUE INJURIES, PRESENT ON ADMISSION. DR MORALES AND DR DARBY NOTIFIED OF SURGICAL AND DPM CONSULTS. RECOMMENDATIONS MADE FOR SKIN PROTECTION. DISCUSSED WITH NURSING STAFF. MD IN AGREEMENT WITH PLAN OF CARE.
[2021-08-26] MEDS: VANCOMYCIN 0.75 GM in IV D5W 250 ML IV SCH (11:22)
[2021-08-26] MEDS: IV NS 0.9% 250 ML IV PRN (12:00)
--- NOTE | 2021-08-26 12:17 | NUR ---
rn notes [id number], due medication administered. Get call from daughter asking update from her mother, per daughter she will not planing do visit to the mother because of Covid. Seen hospitalist Dr Elieser reeves order is follow up. patient on norsynephrine 0.6mcg/kg/min. will follow up. assist turn and reposition q 2 hr.
[2021-08-26 14:09] LABS: CHLORIDE 97 mmol/L (98-107); POTASSIUM 4.2 mmol/L (3.5-5.1); SODIUM SERUM 133 mmol/L (136-145)
[2021-08-26 14:37] LABS: CALCIUM, SERUM 8.3 mg/dL (8.5-10.1); CARBON DIOXIDE 32 mmol/L (21-32); GLUCOSE 155 mg/dL (74-106); UREA NITROGEN, BLOOD 30 mg/dL (7-18)
[2021-08-26] MEDS ORDERED: PERMETHRIN 5% CRM 60 GM TUBE TP ONE (16:30)
--- NOTE | 2021-08-26 18:28 | NUR ---
RN NOTES PATIENT PM CRE DONE, SUCTION, MOUTH CARE, DUE MEDICATION ADMINISTERED. TITRATED UP NEOSYNEPHRINE 0.7 MCG/KG/MIN BP 82/46, P-94. PATIENT ON O2-3LNC, NO ACUTE RESPIRATORY DISTRESS. ASSIST TURN AND REPOSTION Q 2 HR, BS-131MG/DL NO COVERAGE GIVE, PATIENT NPO. BOYLE DRAINING VIA GRAVITY. CALL LIGHT WITHIN TO REACH. ENDORSED ONCOMING NURSE JONATAN.
--- NOTE | 2021-08-26 20:30 | NUR ---
ICU/DOCK HAND BLOOD PRESSURE WAS LOW INTO THE 80'S THROUGH A FEW CYCLES MADE CHARGE NURSE AWARE OF THIS AND INCREASED THE NA TO 0.9 FROM 0.8. WILL CONTINUE TO MONITOR THIS PT AND HER BLOOD PRESSURE.
[2021-08-26] MEDS: ATORVASTATIN 10 MG TABLET PO SCH (21:37)
--- NOTE | 2021-08-26 22:30 | NUR ---
ICU/PLATEN GRINDER PT WAS TURNED AND REPOSITIONED FOR COMFORT AND CARE, SATURATION CAME DOWN TO THE 80'S SO INCREASED THE N/C TO 4 LITERS FROM 3 LITERS. WILL CONTINUE TO MONITOR THIS PT.
[2021-08-26] MEDS: PHENYLEPHRINE 100 MG in IV NS 0.9% 240 ML IV PRN (23:33)
[2021-08-27] VITALS (96 sets, daily range): BP systolic 82–121; BP diastolic 32–74
--- NOTE | 2021-08-27 00:20 | NUR ---
ICU/MANAGER PROGRESSIVE CARE PT WAS DEEP SUCTIONED BY RT RAMONA, THICK YELLOW/BLOODY SECRETIONS FOUND. WILL CONTINUE TO MONITOR THIS PT.
--- NOTE | 2021-08-27 00:36 | NUR ---
ICU/BUNCH MAKER PT'S CT SHOWED THAT SHE IS CONSTIPATED, SUPPOSITORY WAS GIVEN FOR BM. WILL CONTINUE TO MONITOR THIS PT .
[2021-08-27] MEDS: BLOOD SUGAR DIAGNOSTIC 1 EACH STRIP IN SCH ×7 (01:24→21:41)
[2021-08-27] MEDS: INSULIN REGULAR, HUMAN 100 UNIT/ML 3 ML VIAL SQ PRN ×4 (01:25→17:16)
[2021-08-27 04:49] LABS: BASOPHILS % (AUTO) 0.1 % (0.0-2.0); EOSINOPHILS % (AUTO) 0.1 % (0.0-6.0); HEMATOCRIT 32 % (33-45); HEMOGLOBIN 10.6 g/dL (11.5-14.8); LYMPHOCYTES # (AUTO) 0.8 K/uL (0.8-4.8); LYMPHOCYTES % (AUTO) 2.3 % (20.0-44.0); MEAN CORPUSCULAR HGB CONC 33 g/dl (31.0-36.0); MEAN CORPUSCULAR VOLUME 85 fL (82-100); MONOCYTES % (AUTO) 6.2 % (2.0-12.0); NEUTROPHILS # (AUTO) 30.1 K/uL (1.8-8.9); NEUTROPHILS % (AUTO) 91.3 % (43.0-81.0); PLATELET COUNT (AUTO) 339 K/uL (150-450); RED BLOOD CELL COUNT(AUTO) 3.76 MIL/uL (4.0-5.2)
[2021-08-27 05:04] LABS: CALCIUM, SERUM 8.1 mg/dL (8.5-10.1); CARBON DIOXIDE 30 mmol/L (21-32); CHLORIDE 96 mmol/L (98-107); CREATININE 0.9 mg/dL (0.6-1.3); GLUCOSE 152 mg/dL (74-106); MAGNESIUM 1.5 mg/dL (1.8-2.4); PHOSPHORUS 2.5 mg/dL (2.5-4.9); POTASSIUM 3.1 mmol/L (3.5-5.1); SODIUM SERUM 133 mmol/L (136-145); UREA NITROGEN, BLOOD 22 mg/dL (7-18)
[2021-08-27 05:09] LABS: WHITE BLOOD COUNT (AUTO) 32.9 K/uL (4.3-11.0)
[2021-08-27 05:21] LABS: ALANINE AMINOTRANSFERASE 20 U/L (12-78); ALBUMIN 1.9 g/dL (3.4-5.0); ALKALINE PHOSPHATASE 90 U/L (46-116); ASPARTATE AMINOTRANSFERASE 16 U/L (15-37); BILIRUBIN,TOTAL 0.5 mg/dL (0.2-1.0); TOTAL PROTEIN, SERUM 6.2 g/dL (6.4-8.2)
[2021-08-27] MEDS: PIPERACILLIN /TAZOBACTAM 3.375 G in IV D5W 50 ML IV SCH ×3 (05:21→17:09)
[2021-08-27] MEDS: IV PREMIX D5 1/2NS + KCL 1,000 ML IV PRN ×2 (05:22→16:00)
--- NOTE | 2021-08-27 08:00 | NUR ---
rn notes received patient DNR/DNI on 3lnc, no acute respiratory distress. Patient total care, NPO. infusing norsynephrine 0.5 mcg/kg/min, and D5 1/2 NS + kcl 20meq @100 ml/hr on left midline intact. Assist turn and reposition q 2 hr. Lab values reviewed, MD aware of it , waiting for new orders. Magaña draining via gravity. will follow up.
[2021-08-27] MEDS: PANTOPRAZOLE 40 MG VIAL IV SCH (08:14)
[2021-08-27] MEDS: ASPIRIN 81 MG TAB.CHEW PO SCH (08:14)
[2021-08-27] MEDS: CHOLECALCIFEROL 1,000 UNIT TABLET (VIT D3) PO SCH (08:14)
--- NOTE | 2021-08-27 08:59 | NUR ---
rn notes get TO new order of Mg 200, and Kcl 40meq per Dr Joshua order placement. order taken and carried out.
[2021-08-27] MEDS: Magnesium 1GM/D5W 100ML PREMIX 100 ML IV SCH ×2 (09:10→10:02)
[2021-08-27] MEDS: POTASSIUM CL. PREMIX PERIPHER. 50 ML IV SCH ×4 (10:03→14:55)
[2021-08-27 10:48] LABS: BAND % (MANUAL) 3 % (0.0-5.0); LYMPHOCYTES % (MANUAL) 3 % (16-48); MONOCYTES % (MANUAL) 5 % (0-11.0); NEUTROPHILS % (MANUAL) 89 (42-76)
--- NOTE | 2021-08-27 12:00 | NUR ---
rn notes patient awake, gives feedback for questions, seen hospitalist Marina Reddy get TO order swallow evaluation. order taken and carried out.
[2021-08-27] MEDS: VANCOMYCIN 0.75 GM in IV D5W 250 ML IV SCH (12:13)
--- NOTE | 2021-08-27 12:13 | NUR ---
rn notes patient passed swallow evaluation, get TO order CCHO 60gm pure diet.
[2021-08-27] MEDS: IV NS 0.9% 250 ML IV PRN (16:00)
[2021-08-27] MEDS ORDERED: DEXTROSE 50%-WATER 50 ML DISP.SYRIN IV PRN (17:30)
--- NOTE | 2021-08-27 18:22 | NUR ---
rn notes Patient tolerated dinner 40% with total assist, keep hob elevated for aspiration precaution,due medication administered, no acute respiratory distress. infusing norsynephrine 0.4mcg/kg/min, D5Ns+kcl 20mcg/kg/hr intact on AKILAH midline intact. bs-191mg/dl coverage given .assist turn and reposition. Magaña output was 1000ml, endorsed oncoming nurse follow ajit.
--- NOTE | 2021-08-27 19:30 | NUR ---
RN OPENING NOTES RECEIVED CARE OF PATIENT FROM AM NURSE. PATIENT IN BED, LETHARGIC, ALERT TO NAME ONLY, NON-VERBAL. REPOSITIONED PATIENT FOR COMFORT. PATIENT ON O2 THERAPY VIA NC AT 4 L/MIN, NO SOB NOTED, NON-PRODUCTIVE COUGHING NOTED, WILL DEEP SUCTION PATIENT NEEDED, O2 IS CURRENTLY 98%. PATIENT'S TELE MONITOR READING NSR WITH HR OF 76. BOYLE CATH IN PLACE DRAINING YELLOW URINE. NA DRIP INFUSING AT O.4 MCG/KG/MIN, D5NS+KCL 20Meq AT 100 ML/HR VIA AKILAH MIDLINE. SAFETY MEASURES IMPLEMENTED PER HOSPITAL PROTOCOLS. WILL ANTICIPATE AND ATTEND TO PATIENT'S NEEDS AND CONTINUE TO MONITOR PATIENT'S STATUS.
[2021-08-27] MEDS: ATORVASTATIN 10 MG TABLET PO SCH (21:37)
[2021-08-27] MEDS: *INSULIN REGULAR(HUMULIN R)HUM 100 UNIT/ML VIAL SQ PRN (21:40)
--- NOTE | 2021-08-27 22:10 | NUR ---
RN NOTES PATIENT TOLERATES MEDICATION PO INTAKE WITH NOURISHMENT. WILL CONTINUE TO OFFER PATIENT PO NOURISHMENT THROUGHOUT SHIFT.
[2021-08-28] VITALS (81 sets, daily range): BP systolic 82–126; BP diastolic 31–93
[2021-08-28] MEDS: PIPERACILLIN /TAZOBACTAM 3.375 G in IV D5W 50 ML IV SCH ×4 (00:22→17:31)
[2021-08-28] MEDS: IV PREMIX D5 1/2NS + KCL 1,000 ML IV PRN ×3 (01:49→21:46)
[2021-08-28 04:13] LABS: BASOPHILS % (AUTO) 0.1 % (0.0-2.0); EOSINOPHILS % (AUTO) 0.2 % (0.0-6.0); HEMATOCRIT 27 % (33-45); HEMOGLOBIN 8.9 g/dL (11.5-14.8); LYMPHOCYTES % (AUTO) 4.1 % (20.0-44.0); MEAN CORPUSCULAR HGB CONC 33 g/dl (31.0-36.0); MEAN CORPUSCULAR VOLUME 85 fL (82-100); MONOCYTES # (AUTO) 1.7 K/uL (0.1-1.30); MONOCYTES % (AUTO) 6.9 % (2.0-12.0); NEUTROPHILS # (AUTO) 21.5 K/uL (1.8-8.9); NEUTROPHILS % (AUTO) 88.7 % (43.0-81.0); PLATELET COUNT (AUTO) 292 K/uL (150-450); RED BLOOD CELL COUNT(AUTO) 3.15 MIL/uL (4.0-5.2); WHITE BLOOD COUNT (AUTO) 24.3 K/uL (4.3-11.0)
--- NOTE | 2021-08-28 06:40 | NUR ---
RN CLOSING NOTES WILL ENDORSE CARE OF PATIENT TO AM NURSE. PATIENT ORIENTED TO SELF, NON-VERBAL, ABLE TO MAKE NEEDS KNOWN WITH FACIAL EXPRESSIONS. PATIENT IN NO PAIN OR DISCOMFORT THROUGHOUT SHIFT. PATIENT ON O2 THERAPY VIA NC AT 4 L/MIN, NO SOB NOTED, O2 SAT 98%. PATIENT'S TELE MONITOR SHOWING SR WITH HR IN THE 70'S. NO SIGNIFICANT FINDINGS UPON ALL NURSING ASSESSMENTS. ALL SAFETY MEASURES IMPLEMENTED PER HOSPITAL PROTOCOLS. WILL ENDORSE CARE OF PATIENT TO AM NURSE FOR CONTINUITY OF CARE.
--- NOTE | 2021-08-28 08:00 | NUR ---
RN NOTES PATIENT ON O2-4LNC -O2 SAT 98%. HR- ON TELE MONITOR SHOWING SHOWS SR- 70'S. NO SIGNIFICANT FINDINGS UPON ALL NURSING ASSESSMENTS. SUCTION MOUTH CARE DONE, ALL SAFETY MEASURES IMPLEMENTED PER HOSPITAL PROTOCOLS. BS-189MG.DL COVERAGE GIVEN, DUE MEDICATION ADMINISTERED. ASSIST PATIENT TO EAT PATIENT TOLERATED 50%. INFUSING LEVOPHED 0.3 MCG/KG/MIN, D5 1/2 NS WITH 20MEQU KCL @100 ML/HR ON AKILAH MIDLINE INTACT. ASSIST TURN AND REPOSTION Q 2 HR. WILL FOLLOW UP.
[2021-08-28] MEDS: BLOOD SUGAR DIAGNOSTIC 1 EACH STRIP IN SCH ×4 (08:15→22:10)
[2021-08-28] MEDS: INSULIN REGULAR, HUMAN 100 UNIT/ML 3 ML VIAL SQ PRN ×3 (08:20→17:31)
[2021-08-28] MEDS: ASPIRIN 81 MG TAB.CHEW PO SCH (08:21)
[2021-08-28] MEDS: PANTOPRAZOLE 40 MG VIAL IV SCH (08:21)
[2021-08-28] MEDS: CHOLECALCIFEROL 1,000 UNIT TABLET (VIT D3) PO SCH (08:21)
[2021-08-28 08:28] LABS: CALCIUM, SERUM 7.7 mg/dL (8.5-10.1); CREATININE 0.8 mg/dL (0.6-1.3); POTASSIUM 3.8 mmol/L (3.5-5.1)
[2021-08-28] MEDS: Magnesium 1GM/D5W 100ML PREMIX 100 ML IV SCH ×2 (10:22→11:17)
[2021-08-28] MEDS: VANCOMYCIN 0.75 GM in IV D5W 250 ML IV SCH (11:45)
--- NOTE | 2021-08-28 13:00 | NUR ---
rn notes bs-273 mg/dl coverage given, maximum assist eating lunch, titrated norsynephrine per protocol. seen hospitalist Dr Carl will follow up. assist turn and reposition q 2 hr.
--- NOTE | 2021-08-28 18:30 | NUR ---
rn notes bs-244mg/dl coverage given, also administered scheduled medication, pm care done, suction mouth care. Patient tolerated dinner with total assist of 25%, keep hob elevated,. assist turn and reposition q 2 hr. newton output was 1520 ml, bm x1. infusing levlo 0.1 mcg/kg/min titrated per protocol. endorsed oncoming nurse ajit.
--- NOTE | 2021-08-28 19:10 | NUR ---
RN OPENING NOTES RECEIVED PATIENT ON BED, AWAKE, OPEN EYES, ON NASAL CANULA @ 4 LPM SATING AT 97%, RESPIRATORY EVEN AND UNLABORED, NO SOB NOTED, NOT IN ACUTE DISTRESS. REMAIN AFEBRILE. NOTED WITH AKILAH MID LINE AND LEFT FOREARM #20, PATENT, INTACT. FLUSHED WITH NS, NO S/S OF INFILTRATION NOTED AT SITE. RUNNING WITH D5 1/2 NS + KCL 20MEQ @ 100 ML/HR. AND LEVOPHED @ 0.1 MCG/KG/MIN. WITH BOYLE CATHETER INTACT AND PATENT, DRAINING WITH CLEAR YELLOW URINE VIA GRAVITY. ALL SAFETY MEASURE PROVIDED. BED IN LOWEST POSITION, LOCKED. BED ALARM ARMED. CALL LIGHT WITH IN REACH. CONTINUE TO MONITOR.
[2021-08-28] MEDS: PHENYLEPHRINE 100 MG in IV NS 0.9% 240 ML IV PRN ×2 (19:46→19:55)
[2021-08-28] MEDS: *INSULIN REGULAR(HUMULIN R)HUM 100 UNIT/ML VIAL SQ PRN (22:09)
[2021-08-28] MEDS: ATORVASTATIN 10 MG TABLET PO SCH (22:12)
[2021-08-29] VITALS (72 sets, daily range): BP systolic 82–131; BP diastolic 36–100
[2021-08-29] MEDS: PIPERACILLIN /TAZOBACTAM 3.375 G in IV D5W 50 ML IV SCH ×2 (00:08→05:17)
[2021-08-29] MEDS: IV NS 0.9% 250 ML IV PRN (00:57)
[2021-08-29 05:24] LABS: EOSINOPHILS % (AUTO) 0.6 % (0.0-6.0); HEMATOCRIT 27 % (33-45); HEMOGLOBIN 9.2 g/dL (11.5-14.8); LYMPHOCYTES % (AUTO) 4.8 % (20.0-44.0); MEAN CORPUSCULAR HGB CONC 34 g/dl (31.0-36.0); MEAN CORPUSCULAR VOLUME 85 fL (82-100); MONOCYTES # (AUTO) 1.8 K/uL (0.1-1.30); MONOCYTES % (AUTO) 8.7 % (2.0-12.0); NEUTROPHILS # (AUTO) 17.2 K/uL (1.8-8.9); NEUTROPHILS % (AUTO) 85.9 % (43.0-81.0); PLATELET COUNT (AUTO) 268 K/uL (150-450); RED BLOOD CELL COUNT(AUTO) 3.23 MIL/uL (4.0-5.2)
[2021-08-29 05:33] LABS: CALCIUM, SERUM 7.5 mg/dL (8.5-10.1); CARBON DIOXIDE 27 mmol/L (21-32); CHLORIDE 102 mmol/L (98-107); CREATININE 0.8 mg/dL (0.6-1.3); GLUCOSE 185 mg/dL (74-106); PHOSPHORUS 1.9 mg/dL (2.5-4.9); POTASSIUM 3.7 mmol/L (3.5-5.1); SODIUM SERUM 134 mmol/L (136-145); UREA NITROGEN, BLOOD 10 mg/dL (7-18)
--- NOTE | 2021-08-29 07:23 | NUR ---
RN NOTES PATIENT REMAIN STABLE THROUGH OUT THE SHIFT. RESPIRATORY EVEN AND UNLABORED, NO SOB NOTED, NOT IN ACUTE DISTRESS. REMAIN AFEBRILE. RUNNING WITH D5 1/2 NS + KCL 20MEQ @ 100 ML/HR. AND LEVOPHED @ 0.4 MCG/KG/MIN. WITH BOYLE CATHETER INTACT AND PATENT, DRAINING WITH CLEAR YELLOW URINE VIA GRAVITY. ALL DUE MEDS GIVEN ORDERED. ALL SAFETY MEASURE PROVIDED. BED IN LOWEST POSITION, LOCKED. BED ALARM ARMED. CALL LIGHT WITH IN REACH. REPORT GIVEN TO MORNING SHIFT NURSE.
--- NOTE | 2021-08-29 07:30 | NUR ---
#255 RN OPENING NOTE PT RECEIVED IN BED WITH HOB 30 DEGREES. PT IS ON 4L O2 VIA NC TOLERATING WELL NO SIGNS OF DISTRESS OR LABORED BREATHING SAT 98%. PT IS DNR/DNI AT THIS TIME IS A/OX1. FC IS IN PLACE DRAINING URINE TO GRAVITY. IV ACCESS L UA MIDLINE INFUSING WITH NS KCL 20MEQ @100ML/HR AND NA @0.4MCH/HR. BED IS LOCKED IN LOWEST POSITION AND ALL HOSPITAL SAFETY MEASURES ARE IN PLACE. WILL CONTINUE TO MONITOR THIS SHIFT.
[2021-08-29] MEDS: INSULIN REGULAR, HUMAN 100 UNIT/ML 3 ML VIAL SQ PRN ×4 (07:56→21:52)
[2021-08-29] MEDS: BLOOD SUGAR DIAGNOSTIC 1 EACH STRIP IN SCH ×4 (08:02→21:45)
[2021-08-29] MEDS: IV PREMIX D5 1/2NS + KCL 1,000 ML IV PRN ×2 (08:34→18:37)
[2021-08-29] MEDS: ASPIRIN 81 MG TAB.CHEW PO SCH (09:13)
[2021-08-29] MEDS: PANTOPRAZOLE 40 MG VIAL IV SCH (09:13)
[2021-08-29] MEDS: CHOLECALCIFEROL 1,000 UNIT TABLET (VIT D3) PO SCH (09:13)
[2021-08-29] MEDS ORDERED: Sodium Phosphate 30 MMOL in IV NS 0.9% 250 ML IV SCH (12:00)
[2021-08-29] MEDS: PIPERACILLIN /TAZOBACTAM 3.375 G in IV D5W 100 ML IV SCH ×2 (13:21→20:05)
[2021-08-29] MEDS: VANCOMYCIN 0.75 GM in IV D5W 250 ML IV SCH (13:21)
--- NOTE | 2021-08-29 18:43 | NUR ---
RN CLOSING NOTE PT IN BED WITH HOB 30 DEGREES. PT IS ON 3L O2 VIA NC TOLERATING WELL NO SIGNS OF DISTRESS OR LABORED BREATHING SAT 9%. PT IS DNR/DNI AT THIS TIME IS A/OX1 OPENS EYES PERIODICALLY. FC IS IN PLACE DRAINING URINE TO GRAVITY -1500ML. IV ACCESS L UA MIDLINE INFUSING WITH NS KCL 20MEQ @100ML/HR AND NA @0.4MCH/HR. BED IS LOCKED IN LOWEST POSITION AND ALL HOSPITAL SAFETY MEASURES ARE IN PLACE. WILL ENDORSE TO [employer] R12 DEVELOPER NURSE FOR [facility].
[2021-08-29] MEDS: PHENYLEPHRINE 100 MG in IV NS 0.9% 240 ML IV PRN (20:05)
[2021-08-29] MEDS: ATORVASTATIN 10 MG TABLET PO SCH (21:44)
[2021-08-30] VITALS (89 sets, daily range): BP systolic 85–143; BP diastolic 36–75
[2021-08-30] MEDS: IV NS 0.9% 250 ML IV PRN (01:01)
[2021-08-30] MEDS ORDERED: IV PREMIX D5 1/2NS + KCL 1,000 ML IV ONE (04:36)
[2021-08-30 04:51] LABS: BASOPHILS % (AUTO) 0.2 % (0.0-2.0); EOSINOPHILS % (AUTO) 2.4 % (0.0-6.0); HEMATOCRIT 27 % (33-45); HEMOGLOBIN 8.8 g/dL (11.5-14.8); LYMPHOCYTES # (AUTO) 1.3 K/uL (0.8-4.8); LYMPHOCYTES % (AUTO) 8.7 % (20.0-44.0); MEAN CORPUSCULAR HGB CONC 33 g/dl (31.0-36.0); MEAN CORPUSCULAR VOLUME 86 fL (82-100); MONOCYTES # (AUTO) 1.7 K/uL (0.1-1.30); MONOCYTES % (AUTO) 11.4 % (2.0-12.0); NEUTROPHILS # (AUTO) 11.7 K/uL (1.8-8.9); NEUTROPHILS % (AUTO) 77.3 % (43.0-81.0); PLATELET COUNT (AUTO) 287 K/uL (150-450); RED BLOOD CELL COUNT(AUTO) 3.13 MIL/uL (4.0-5.2); WHITE BLOOD COUNT (AUTO) 15.2 K/uL (4.3-11.0)
[2021-08-30] MEDS: PIPERACILLIN /TAZOBACTAM 3.375 G in IV D5W 100 ML IV SCH ×3 (04:59→20:00)
[2021-08-30] MEDS: IV PREMIX D5 1/2NS + KCL 1,000 ML IV PRN ×3 (04:59→23:25)
[2021-08-30 05:10] LABS: ALANINE AMINOTRANSFERASE 34 U/L (12-78); ALBUMIN 1.5 g/dL (3.4-5.0); ALKALINE PHOSPHATASE 126 U/L (46-116); ASPARTATE AMINOTRANSFERASE 15 U/L (15-37); BILIRUBIN,TOTAL 0.5 mg/dL (0.2-1.0); CALCIUM, SERUM 7.7 mg/dL (8.5-10.1); CARBON DIOXIDE 29 mmol/L (21-32); CHLORIDE 104 mmol/L (98-107); CREATININE 0.7 mg/dL (0.6-1.3); GLUCOSE 157 mg/dL (74-106); MAGNESIUM 1.6 mg/dL (1.8-2.4); PHOSPHORUS 3.2 mg/dL (2.5-4.9); POTASSIUM 4.1 mmol/L (3.5-5.1); SODIUM SERUM 136 mmol/L (136-145); TOTAL PROTEIN, SERUM 5.7 g/dL (6.4-8.2); UREA NITROGEN, BLOOD 6 mg/dL (7-18)
[2021-08-30] MEDS: BLOOD SUGAR DIAGNOSTIC 1 EACH STRIP IN SCH ×4 (08:13→22:19)
[2021-08-30] MEDS: INSULIN REGULAR, HUMAN 100 UNIT/ML 3 ML VIAL SQ PRN ×3 (08:18→17:12)
[2021-08-30] MEDS: ASPIRIN 81 MG TAB.CHEW PO SCH (09:33)
[2021-08-30] MEDS: CHOLECALCIFEROL 1,000 UNIT TABLET (VIT D3) PO SCH (09:33)
[2021-08-30] MEDS: PANTOPRAZOLE 40 MG VIAL IV SCH (09:33)
[2021-08-30] MEDS ORDERED: MAGNESIUM OXIDE 400 MG TABLET PO ONE (11:00)
[2021-08-30] MEDS: ATORVASTATIN 10 MG TABLET PO SCH (22:19)
[2021-08-30] MEDS: *INSULIN REGULAR(HUMULIN R)HUM 100 UNIT/ML VIAL SQ PRN (22:21)
[2021-08-31] VITALS (20 sets, daily range): BP systolic 94–134; BP diastolic 31–71
[2021-08-31] MEDS: IV NS 0.9% 250 ML IV PRN (01:00)
[2021-08-31] MEDS: PIPERACILLIN /TAZOBACTAM 3.375 G in IV D5W 100 ML IV SCH ×2 (04:00→13:21)
[2021-08-31 04:33] LABS: BASOPHILS % (AUTO) 0.5 % (0.0-2.0); EOSINOPHILS % (AUTO) 3.1 % (0.0-6.0); HEMATOCRIT 26 % (33-45); HEMOGLOBIN 8.9 g/dL (11.5-14.8); LYMPHOCYTES # (AUTO) 1.1 K/uL (0.8-4.8); LYMPHOCYTES % (AUTO) 10.5 % (20.0-44.0); MEAN CORPUSCULAR HGB CONC 34 g/dl (31.0-36.0); MEAN CORPUSCULAR VOLUME 86 fL (82-100); MONOCYTES # (AUTO) 1.3 K/uL (0.1-1.30); MONOCYTES % (AUTO) 12.1 % (2.0-12.0); NEUTROPHILS # (AUTO) 7.8 K/uL (1.8-8.9); NEUTROPHILS % (AUTO) 73.8 % (43.0-81.0); PLATELET COUNT (AUTO) 300 K/uL (150-450); RED BLOOD CELL COUNT(AUTO) 3.04 MIL/uL (4.0-5.2); WHITE BLOOD COUNT (AUTO) 10.5 K/uL (4.3-11.0)
[2021-08-31 05:03] LABS: ALANINE AMINOTRANSFERASE 22 U/L (12-78); ALBUMIN 1.5 g/dL (3.4-5.0); ALKALINE PHOSPHATASE 110 U/L (46-116); ASPARTATE AMINOTRANSFERASE 8 U/L (15-37); BILIRUBIN,TOTAL 0.4 mg/dL (0.2-1.0); CALCIUM, SERUM 7.5 mg/dL (8.5-10.1); CARBON DIOXIDE 26 mmol/L (21-32); CHLORIDE 105 mmol/L (98-107); CREATININE 0.7 mg/dL (0.6-1.3); GLUCOSE 178 mg/dL (74-106); MAGNESIUM 1.7 mg/dL (1.8-2.4); PHOSPHORUS 2.3 mg/dL (2.5-4.9); POTASSIUM 4.5 mmol/L (3.5-5.1); SODIUM SERUM 135 mmol/L (136-145); TOTAL PROTEIN, SERUM 5.5 g/dL (6.4-8.2); UREA NITROGEN, BLOOD 5 mg/dL (7-18)
--- NOTE | 2021-08-31 07:30 | NUR ---
SITE SUPERVISOR AM NOTE PT IN BED, NONVERBAL, OPENS EYES, ON 4L O2 VIA NC, TOLERATING WELL NO SIGNS OF DISTRESS OR LABORED BREATHING SAT 97%. SR HR 68 ON MONITOR, NO SIGNS OF PAIN/DISCOMFORT, IV ACCESS L UA MIDLINE INFUSING WITH NS KCL 20MEQ @100ML/HR, SITE CLEAR, PUREE DIET, BOYLE CATH IN PLACE, URINE DRAINING VIA GRAVITY, SEE NURSING FLOWSHEET FOR SKIN ISSUES, WILL TURN AND REPOSITION Q 2 HOURS. BED IS LOCKED IN LOWEST POSITION AND ALL HOSPITAL SAFETY MEASURES ARE IN PLACE. WILL CONTINUE TO MONITOR.
[2021-08-31] MEDS: BLOOD SUGAR DIAGNOSTIC 1 EACH STRIP IN SCH ×4 (07:36→22:52)
[2021-08-31] MEDS: INSULIN REGULAR, HUMAN 100 UNIT/ML 3 ML VIAL SQ PRN ×3 (07:55→17:59)
[2021-08-31] MEDS: CHOLECALCIFEROL 1,000 UNIT TABLET (VIT D3) PO SCH (08:02)
[2021-08-31] MEDS: PANTOPRAZOLE 40 MG TABLET.DR PO SCH (08:02)
[2021-08-31] MEDS: ASPIRIN 81 MG TAB.CHEW PO SCH (08:02)
--- NOTE | 2021-08-31 09:30 | NUR ---
RESERVATION AGENT NOTES DUE MEDS GIVEN
[2021-08-31] MEDS: IV PREMIX D5 1/2NS + KCL 1,000 ML IV PRN (10:07)
[2021-08-31] MEDS ORDERED: K PHOS NEUTRAL 250 MG TABLET PO ONE (10:30)
[2021-08-31] MEDS: Magnesium 1GM/D5W 100ML PREMIX 100 ML IV SCH ×2 (10:59→12:09)
--- NOTE | 2021-08-31 11:50 | NUR ---
RN NOTES TRANSFER TO ROOM 106. DOWNGRADE TO TELEMETRY BY DR. DR. ARIAS
[2021-08-31] MEDS: GLUCERNA SHAKE 237 ML CAN PO SCH (17:07)
--- NOTE | 2021-08-31 19:16 | NUR ---
MOBILE PHONE SALESPERSON CLOSING NOTE PT RESTING IN BED, NONVERBAL, OPENS EYES, ON 4L O2 VIA NC, TOLERATING WELL NO SIGNS OF DISTRESS OR LABORED BREATHING SAT 97%. SR HR 78 ON MONITOR, NO SIGNS OF PAIN/DISCOMFORT, IV ACCESS L UA MIDLINE INFUSING WITH NS KCL 20MEQ @100ML/HR, SITE CLEAR, PUREE DIET, BOYLE CATH IN PLACE, URINE DRAINING VIA GRAVITY, TOTAL OUTPUT 950 ML, TURNED AND REPOSITIONED Q 2 HOURS. PM CARE DONE EARLIER. BED IS LOCKED IN LOWEST POSITION AND SAFETY MEASURES ARE IN PLACE. ALL NEEDS MET AT THIS TIME. WILL ENDORSE TO NEXT SHIFT FOR JONATAN.
--- NOTE | 2021-08-31 20:49 | NUR ---
SPEECH LANGUAGE PATHOLOGY ASSISTANT OPENING NOTE RECEIVED CARE OF PATIENT FROM AM NURSE, PATIENT NON-INTERACTIVE, NON-VERBAL, OPENS EYES TO NAME ONLY. PATIENT ON O2 THERAPY VIA NC AT 2 L/MIN, NO SOB NOTED, BREATHING EVEN AND UNLABORED, O2 SAT 97%. PATIENT ON TELE MONITOR SHOWING SINUS SEBAS AND NSR WITH HR CURRENTLY AT 67, NO DISTRESS NOTED ON PATIENT. IV ACCESS AKILAH MIDLINE INFUSING WITH NS KCL 20MEQ @100ML/HR, SITE CLEAR. BOYLE CATH IN PLACE, URINE DRAINING VIA GRAVITY. SAFETY MEASURES IMPLEMENTED, BED IS LOCKED IN LOWEST POSITION AND SAFETY MEASURES ARE IN PLACE. WILL CONTINUE TO MONITOR.
[2021-08-31] MEDS: ATORVASTATIN 10 MG TABLET PO SCH (22:12)
[2021-08-31] MEDS: *INSULIN REGULAR(HUMULIN R)HUM 100 UNIT/ML VIAL SQ PRN (22:52)
[2021-09-01] VITALS: BP 143/53
[2021-09-01] MEDS ORDERED: IV PREMIX D5 1/2NS + KCL 1,000 ML IV ONE (00:09)
[2021-09-01] MEDS: IV PREMIX D5 1/2NS + KCL 1,000 ML IV PRN (00:57)
[2021-09-01 04:00] VITALS: BP 148/73
--- NOTE | 2021-09-01 06:52 | NUR ---
RN CLOSING NOTES WILL ENDORSE CARE OF PATIENT TO AM NURSE, PATIENT NON-INTERACTIVE, OPENS EYES. ALL PATIENT NEEDS ANTICIPATED AND MET THROUGHOUT SHIFT. REPOSITIONED AND OFF LOAD EXTREMITIES Q2H, WOUND CARE DONE ORDERED. NO SIGNIFICANT FINDINGS UPON ALL NURSING ASSESSMENTS. ALL DUE MEDS GIVEN. SAFETY MEASURES IMPLEMENTED PER HOSPITAL PROTOCOLS. WILL ENDORSE TO AM NURSE FOR CONTINUITY OF CARE.
[2021-09-01 07:08] LABS: BASOPHILS % (AUTO) 0.4 % (0.0-2.0); EOSINOPHILS % (AUTO) 3.5 % (0.0-6.0); HEMATOCRIT 33 % (33-45); HEMOGLOBIN 10.5 g/dL (11.5-14.8); LYMPHOCYTES # (AUTO) 1.2 K/uL (0.8-4.8); LYMPHOCYTES % (AUTO) 13.4 % (20.0-44.0); MEAN CORPUSCULAR HGB CONC 32 g/dl (31.0-36.0); MEAN CORPUSCULAR VOLUME 88 fL (82-100); MONOCYTES # (AUTO) 0.8 K/uL (0.1-1.30); MONOCYTES % (AUTO) 9.3 % (2.0-12.0); NEUTROPHILS # (AUTO) 6.5 K/uL (1.8-8.9); NEUTROPHILS % (AUTO) 73.4 % (43.0-81.0); PLATELET COUNT (AUTO) 448 K/uL (150-450); RED BLOOD CELL COUNT(AUTO) 3.72 MIL/uL (4.0-5.2); WHITE BLOOD COUNT (AUTO) 8.9 K/uL (4.3-11.0)
--- NOTE | 2021-09-01 07:30 | NUR ---
SENIOR DIRECTOR OF GLOBAL COMMERCIAL TECHNOLOGY SOLUTIONS AM NOTE PT IN BED, NONVERBAL, OPENS EYES, ON 4L O2 VIA NC, TOLERATING WELL NO SIGNS OF DISTRESS OR LABORED BREATHING SAT 97%. SR HR 88 ON MONITOR, NO SIGNS OF PAIN/DISCOMFORT, IV ACCESS L UA MIDLINE INFUSING WITH NS KCL 20MEQ @100ML/HR, SITE CLEAR, PUREE DIET, BOYLE CATH IN PLACE, URINE DRAINING VIA GRAVITY, SEE NURSING FLOWSHEET FOR SKIN ISSUES, WILL TURN AND REPOSITION Q 2 HOURS. BED IS LOCKED IN LOWEST POSITION AND ALL HOSPITAL SAFETY MEASURES ARE IN PLACE. WILL CONTINUE TO MONITOR.
[2021-09-01] MEDS: BLOOD SUGAR DIAGNOSTIC 1 EACH STRIP IN SCH ×2 (07:58→11:22)
[2021-09-01] MEDS: GLUCERNA SHAKE 237 ML CAN PO SCH (07:58)
[2021-09-01 08:00] VITALS: BP 149/78
[2021-09-01 08:04] LABS: ALANINE AMINOTRANSFERASE 17 U/L (12-78); ALBUMIN 1.7 g/dL (3.4-5.0); ALKALINE PHOSPHATASE 118 U/L (46-116); ASPARTATE AMINOTRANSFERASE 11 U/L (15-37); BILIRUBIN,TOTAL 0.3 mg/dL (0.2-1.0); CARBON DIOXIDE 27 mmol/L (21-32); CHLORIDE 105 mmol/L (98-107); CREATININE 0.7 mg/dL (0.6-1.3); GLUCOSE 168 mg/dL (74-106); MAGNESIUM 1.9 mg/dL (1.8-2.4); PHOSPHORUS 2.8 mg/dL (2.5-4.9); POTASSIUM 4.3 mmol/L (3.5-5.1); SODIUM SERUM 135 mmol/L (136-145); TOTAL PROTEIN, SERUM 6.5 g/dL (6.4-8.2)
[2021-09-01 08:14] LABS: UREA NITROGEN, BLOOD 5 mg/dL (7-18)
[2021-09-01] MEDS: ASPIRIN 81 MG TAB.CHEW PO SCH (08:58)
[2021-09-01] MEDS: CHOLECALCIFEROL 1,000 UNIT TABLET (VIT D3) PO SCH (08:58)
[2021-09-01] MEDS: PANTOPRAZOLE 40 MG TABLET.DR PO SCH (08:58)
[2021-09-01] MEDS: *INSULIN REGULAR(HUMULIN R)HUM 100 UNIT/ML VIAL SQ PRN (09:02)
--- NOTE | 2021-09-01 09:30 | NUR ---
RN NOTES DUE MEDS GIVEN
[2021-09-01] MEDS: INSULIN REGULAR, HUMAN 100 UNIT/ML 3 ML VIAL SQ PRN (11:47)
--- NOTE | 2021-09-01 15:24 | NUR ---
RN NOTES REPORT GIVEN TO [facility] - FAIS[facility]. PATIENT TO BE DISCHARGED TO [facility] IN STABLE CONDITION. DC INSTRUCTIONS PROVIDED,ALONG WITH MED RECON LIST AND HEALTH TEACHINGS. PATIENT IN NONVERBAL AND CONFUSED, ALL PAPERWORKS SIGNED AND COMPETED. NO BELONGINGS. AKILAH MIDLINE AND LFA IV ACCESS REMOVED, CATH TIP COMPLETE/INTACT, NO COMPLICATIONS NOTED. PRESSURE AND DRESSING APPLIED. NO BLEEDING. PATIENT TO BE TRANSPORTED TO FACILITY VIA AMBULANCE. SURVEY RESEARCH ASSOCIATE TIME AT 1600
[2021-09-01 16:00] VITALS: BP 111/83
--- NOTE | 2021-09-01 16:45 | NUR ---
RN NOTES PATIENT PICKED UP BY 2 AMBULANCE CREW AND WILL TRANSPORT TO FACILITY VIA AMBULANCE. STABLE
== END 2021-09-01 18:52 | DRG 871 ==
LOC: ER 08:51 → TRANSITION 12:25 → ICU 15:58 → TELE1 08-31 11:16 → MEDSG1 09-01 08:59
PROVIDERS: ADMIT Nurse Practitioner Acute Care; ATTEND Nurse Practitioner Acute Care
PROC: 05HC33Z Insertion of Infusion Device into Left Basilic Vein, Percutaneous Approach (ICD-10-PCS; principal; 2021-08-25)
DX: A41.9 Sepsis, unspecified organism (principal); E11.10 Type 2 diabetes mellitus with ketoacidosis without coma; G92.8 Other toxic encephalopathy; J69.0 Pneumonitis due to inhalation of food and vomit; J96.01 Acute respiratory failure with hypoxia; N17.0 Acute kidney failure with tubular necrosis; R65.21 Severe sepsis with septic shock; D68.59 Other primary thrombophilia; E44.0 Moderate protein-calorie malnutrition; J90 Pleural effusion, not elsewhere classified; K81.0 Acute cholecystitis; E87.0 Hyperosmolality and hypernatremia; J98.11 Atelectasis; R64 Cachexia; Z20.822 Contact with and (suspected) exposure to COVID-19; Z66 Do not resuscitate; K21.9 Gastro-esophageal reflux disease without esophagitis; Z86.16 Personal history of COVID-19; Z79.82 Long term (current) use of aspirin; Z79.84 Long term (current) use of oral hypoglycemic drugs; Z79.899 Other long term (current) drug therapy; E88.09 Other disorders of plasma-protein metabolism, not elsewhere classified; Y95 Nosocomial condition; Z87.440 Personal history of urinary (tract) infections; E78.5 Hyperlipidemia, unspecified; Z74.09 Other reduced mobility; F03.90 Unspecified dementia, unspecified severity, without behavioral disturbance, psychotic disturbance, mood disturbance, and anxiety; I10 Essential (primary) hypertension; D75.839 Thrombocytosis, unspecified; R21 Rash and other nonspecific skin eruption; E11.65 Type 2 diabetes mellitus with hyperglycemia; M62.562 Muscle wasting and atrophy, not elsewhere classified, left lower leg; M62.561 Muscle wasting and atrophy, not elsewhere classified, right lower leg; L89.616 Pressure-induced deep tissue damage of right heel; F09 Unspecified mental disorder due to known physiological condition; K82.8 Other specified diseases of gallbladder
CPT/HCPCS: 31720; 36410; 36415; 70450-TC; 71045-TC; 80048-TC; 80053-TC; 80076-TC; 80202-TC; 81001; 82140-TC; 82533; 82962-TC; 83605-TC; 83690-TC; 83735-TC; 83880; 84100-TC; 84443-TC; 84484-TC; 85025-TC; 85730-TC; 87040-TC; 87081-TC; 87086-TC; 92526; 92611-TC; 94799-TC; A9563; C9113; C9803; G0378; G0480; J0692; J1815; J1940; J2370; J2405; J2543; J3370; J3475; J3480; J3490; J7030; J7050; J7060; J7070